=== PATIENT | female | born 2000 | race Hispanic/Latino ===

== ENCOUNTER 2019-11-28 12:21 | Emergency (ER) | payer OTHER ==
[~2019-11-28] VITALS: Ht 152.4 cm; Wt 55.8 kg
== END 2019-11-28 14:27 | disposition home or self-care (01) ==
LOC: ED 12:21
DX: S10.93XA Contusion of unspecified part of neck, initial encounter (principal); S20.229A Contusion of unspecified back wall of thorax, initial encounter; E11.9 Type 2 diabetes mellitus without complications; W22.8XXA Striking against or struck by other objects, initial encounter
CPT/HCPCS: 72040; 72070; 99283-25; A9270